=== PATIENT | male | born 1970 | race Caucasian/White ===

== ENCOUNTER → 2018-01-05 13:03 | Outpatient (REF) | payer SELFPAY ==
[2018-01-05 15:06] LABS: Hemoglobin A1C 5.6 % (4.5-6.2)
== END ==
LOC: LBO 13:03
PROVIDERS: PCP Emergency Medicine; Visit Provider Nurse Practitioner Family
DX: R81 Glycosuria (principal); Z02.79 Encounter for issue of other medical certificate

== ENCOUNTER 2018-12-28 09:23 | Outpatient (CLI) | payer BC, SELFPAY ==
[2018-12-28 11:25] LABS: Hemoglobin A1C 5.6 % (4.5-6.2)
[2018-12-29 10:47] LABS: PSA, Screening 1.1 ng/ml (0-3.5)
== END 2018-12-28 09:43 ==
PROVIDERS: PCP Emergency Medicine; Visit Provider Emergency Medicine
DX: Z00.01 Encounter for general adult medical examination with abnormal findings (principal); Z13.1 Encounter for screening for diabetes mellitus; Z12.5 Encounter for screening for malignant neoplasm of prostate
CPT/HCPCS: 36415; 84153; 83036

== ENCOUNTER 2020-02-02 18:12 | Outpatient (REF) | payer BC, SELFPAY ==
[2020-02-02 14:34] LABS: Calculated LDL 185 mg/dL (<100); Cholesterol 291 mg/dL (<200); HDL Cholesterol 91 mg/dL (40-60); Triglyceride 76 mg/dL (<150)
== END 2020-02-02 18:32 ==
LOC: LBN 18:12
PROVIDERS: PCP Emergency Medicine; Visit Provider Emergency Medicine
DX: Z00.00 Encounter for general adult medical examination without abnormal findings (principal); Z13.220 Encounter for screening for lipoid disorders
CPT/HCPCS: 80061

== ENCOUNTER 2020-09-25 14:20 | Outpatient (REF) | payer BC, SELFPAY ==
[2020-09-25 22:10] LABS: Anion Gap 8.7 mmol/L (3-11); BUN 15 mg/dL (7-18); CO2 29.3 mmol/L (21.0-32.0); CREATININE 0.9 mg/dL (0.70-1.30); Calcium 9.5 mg/dL (8.5-10.1); Calculated LDL 178 mg/dL (<100); Chloride 103 mmol/L (98-107); Cholesterol 281 mg/dL (<200); Glucose 92 mg/dL (74-106); HDL Cholesterol 86 mg/dL (40-60); Potassium 4.7 mmol/L (3.5-5.1); Sodium 141 mmol/L (136-145); Triglyceride 85 mg/dL (<150)
== END 2020-09-25 14:21 | disposition home or self-care (01) ==
LOC: LBN 14:20
PROVIDERS: PCP Emergency Medicine; Visit Provider Emergency Medicine
DX: I10 Essential (primary) hypertension (principal)
CPT/HCPCS: 80048; 80061

== ENCOUNTER 2021-02-06 16:37 | Outpatient (REF) | payer BC, SELFPAY ==
[2021-02-06 19:13] LABS: Calculated LDL 86 mg/dL (<100); Cholesterol 181 mg/dL (<200); HDL Cholesterol 87 mg/dL (40-60); Triglyceride 42 mg/dL (<150)
== END 2021-02-06 16:38 | disposition home or self-care (01) ==
LOC: LBN 16:37
PROVIDERS: PCP Emergency Medicine; Visit Provider Emergency Medicine
DX: E78.5 Hyperlipidemia, unspecified (principal)
CPT/HCPCS: 80061

== ENCOUNTER 2022-05-22 01:00 | Outpatient (CLI) | payer BC, SELFPAY ==
[2022-05-22 07:56] LABS: Calculated LDL 110 mg/dL (<100); Cholesterol 209 mg/dL (<200); HDL Cholesterol 85 mg/dL (40-60); Potassium 4.5 mmol/L (3.5-5.1); Triglyceride 70 mg/dL (<150)
== END 2022-05-22 01:01 | disposition home or self-care (01) ==
LOC: LBO 01:00
PROVIDERS: PCP Nurse Practitioner Family; Visit Provider Nurse Practitioner Family
DX: I10 Essential (primary) hypertension (principal); E78.5 Hyperlipidemia, unspecified
CPT/HCPCS: 36415; 80061; 82565; 84132

== ENCOUNTER 2024-03-17 02:56 | Outpatient (CLI) | payer BC, SELFPAY ==
[2024-03-17 09:39] LABS: Hemoglobin A1C 5.4 % (<5.7)
[2024-03-17 09:45] LABS: CREATININE 0.9 mg/dL (0.70-1.30); Calculated LDL 116 mg/dL (<100); Cholesterol 225 mg/dL (<200); Estimated GFR 100.86 (mL/min/1.73m2); HDL Cholesterol 95 mg/dL (40-60); Potassium 4.2 mmol/L (3.5-5.1); Triglyceride 71 mg/dL (<150)
== END 2024-03-17 02:57 | disposition home or self-care (01) ==
LOC: LBO 02:56
PROVIDERS: PCP Nurse Practitioner Family; Visit Provider Nurse Practitioner Family
DX: I10 Essential (primary) hypertension (principal); Z13.220 Encounter for screening for lipoid disorders; E78.5 Hyperlipidemia, unspecified; Z13.1 Encounter for screening for diabetes mellitus
CPT/HCPCS: 36415; 80061; 82565; 83036; 84132

== ENCOUNTER 2025-02-15 02:56 | Outpatient (CLI) | payer OTHER, SELFPAY ==
--- NOTE | 2025-02-15 06:00 | DI.MRI_ITS ---
Exam(s) MR LUMBAR SPINE WO EXAM: MR LUMBAR SPINE WO CLINICAL HISTORY: Failing PT,radiculopathy,CHRONIC BILAT LOW BACK PAIN,M54.50. TECHNIQUE: Multiplanar multisequence MRI of the Lumbar spine was performed. COMPARISON: There are no prior lumbar spine plain films available for viewing at the time of this MRI interpretation.. FINDINGS: Five lumbar vertebrae are presumed. Conus medullaris is at normal level. There is no evidence of conus mass nor subjacent clumping of intrathecal nerve roots to suggest arachnoiditis. The distal thecal sac appears unremarkable.There is no evidence of Tarlov intrasacral cysts nor other significant findings within the sacral canal Bones:There are no fractures nor ominous osseous lesions in the lumbar vertebral bodies and visualized sacrum. With respect to the individual levels... T12-L1: Unremarkable L1-2: There is some narrowing of the right-side of the disc space which results in mild scoliosis convex left. There is no disc herniation or central canal stenosis. No significant facet arthropathy. No significant foraminal stenosis on either side. L2-3: Normal disc height. No disc herniation nor central canal stenosis.No foraminal stenosis.No facet arthropathy. L3-4: Normal disc height and signal. No disc herniation or central canal stenosis. No significant facet arthropathy. No foraminal stenosis. L4-5: Normal disc height and signal. Posteriorly there is mild symmetrical annular bulging but no dominant disc herniation. Central canal dimensions are lower normal. L5-S1: Normal disc height. However, there is a posterolateral left disc protrusion which extends posteriorly 5 mm and is approximately 9 mm wide. This contacts the exiting left nerve root at this level. However, the disc herniation does not extend appreciably into the exiting neural foramen. The op posite-right exiting neural foramen appears unremarkable. Facet joints unremarkable. Soft tissues: paraspinal soft tissues appear unremarkable. IMPRESSION: 1. The main finding here is a posterolateral left disc protrusion at L5-S1 level as described above. DATA REPOSITORY:
== END 2025-02-15 03:16 ==
LOC: DI 02:56
PROVIDERS: PCP Nurse Practitioner Family; Visit Provider Nurse Practitioner Family
DX: M54.50 Low back pain, unspecified (principal); G89.29 Other chronic pain
CPT/HCPCS: 72148